=== PATIENT | female | born 1955 | race Caucasian/White ===

== ENCOUNTER 2025-09-14 09:59 | Outpatient (CLI) | payer MEDICARE, MEDICAID | END 2025-09-14 10:00 | disposition home or self-care (01) | LOC: BICMAMMO 09:59 | PROVIDERS: ATTEND Nurse Practitioner Family | DX: Z78.0 Asymptomatic menopausal state (principal); M85.89 Other specified disorders of bone density and structure, multiple sites | CPT/HCPCS: 77080 ==